=== PATIENT | female | born 1955 | race Caucasian/White ===

== ENCOUNTER 2016-12-09 21:55 | Emergency (ER) | payer BC ==
[~2016-12-09] VITALS: Ht 162.6 cm; Wt 87.5 kg
[2016-12-09 21:57] VITALS: Ht 162.6 cm; Wt 87.5 kg
[2016-12-10] MEDS ORDERED: HYDR-906 PO ×2 (00:15→00:56)
[2016-12-10] MEDS ORDERED: htn meds (00:15)
--- NOTE | 2016-12-10 00:20 | ERD ---
ER Documentation Chief Complaint Date/Time DATE: 12/10/16 TIME: 00:14 Chief Complaint pt reports out of pain meds HPI 61-year-old female presents to emergency department for refill of her pain medication, patient usually takes Grover 5/325 mg to help with her bilateral knee pain, chronic pain, patient has history of arthritis of both knees. Patient denies any trauma in the knee. Patient denies any fever or chills. Patient denies any redness or swelling. Patient denies any deformity. Patient ran out of the medication last 2 days. Patient denies any numbness or tingling. ROS All systems reviewed and are negative except as per history of present illness. Medications Home Meds Active Scripts Hydrocodone/Acetaminophen (Grover 5-325 Tablet) 1 Each Tablet, 1 TAB PO Q6H Y for PAIN, #10 TAB Prov:RINA STANFORD WEB [employer] DIRECTOR 12/10/16 Reported Medications Hydrocodone/Acetaminophen (Grover 5-325 Tablet) Unknown Strength Tablet, PO, TAB 12/10/16 [htn meds] Unknown Strength No Conflict Check 12/10/16 Allergies Allergies: Coded Allergies: No Known Allergy (Unverified , 12/10/16) PMhx/Soc History of Surgery: Yes (hysterectomy, section, cholecystectomy) Hx Miscellaneous Medical Probl: Yes (osteoarthritis, hypertension) Hx Alcohol Use: No Hx Substance Use: No Hx Tobacco Use: No FmHx Family History: No coronary disease, No diabetes, No other Physical Exam Vitals Vital Signs Date Time Temp Pulse Resp B/P Pulse Ox O2 Delivery O2 Flow Rate FiO2 12/10/16 01:16 98.2 60 16 161/81 97 Room Air 12/09/16 21:57 98.2 60 16 173/81 97 Physical Exam GENERAL: The patient is well developed and appropriate for usual state of health, in no apparent distress. CHEST: Clear to auscultation bilaterally. There are no rales, wheezes or rhonchi. HEART: Regular rate and rhythm. No murmurs, clicks, rubs or gallops. No S3 or S4. ABDOMEN: Soft, nontender and nondistended. Good bowel sounds. No rebound or guarding. No gross peritonitis. No gross organomegaly or masses. No Albrecht sign or McBurney point tenderness. BACK: No midline or flank tenderness. EXTREMITIES: Able to do full range of motion of bilateral knee without any restriction, no swelling noted, no deformity noted. No obvious joint effusion. Equal pulses bilaterally. Full range of motion of other joints of the body. Grossly neurovascularly intact. NEURO: Alert and oriented. Cranial nerves 2-12 intact. Motor strength in all 4 extremities with 5/5 strength. Sensation grossly intact. Normal speech and gait. SKIN: There is no apparent rash or petechia. The skin is warm and dry. HEMATOLOGIC AND LYMPHATIC: There is no evidence of excessive bruising or lymphedema. No gross cervical, axillary, or inguinal lymphadenopathy. Results 24 hrs Current Medications Medications (Trade) Dose Ordered Sig/Kim Route PRN Reason Start Time Stop Time Status Last Admin Dose Admin Acetaminophen/ Hydrocodone Bitart (Grover (5/325)) 1 tab ONCE ONCE PO 12/10/16 00:30 12/10/16 00:31 DC 12/10/16 00:50 Patient was given medication for pain here in emergency department, after treatment, patient verbalized feeling much better. Patient's pain is improved. Procedures/MDM Medical Decision Making: Patient's pain is most likely consistent with a chronic knee pain most likely from osteoarthritis. There is no suspicion for neurovascular compromise. Patient has intact sensation and circulation of the affected extremity. There is low suspicion for septic arthritis. Patient does not have any fever. Radiology exam is not indicated at this time since patient did not have any trauma on affected area. Disposition: Home. Patient is given prescription for Grover for severe pain (few pills, advised to see primary care doctor for further medications). Patient was advised to elevate the affected area and apply ice on affected area. Patient was advised that if symptoms are worse, numbness, tingling, high fever, unable to move joint, worsening symptoms, to return to emergency department immediately. Otherwise, patient is advised to follow up with the primary care doctor in 5-7 days for reevaluation of symptoms. Departure Diagnosis: Primary Impression: Encounter for medication refill Additional Impression: Chronic knee pain Laterality: bilateral Qualified Code: M25.561 - Chronic pain of both knees Condition: Stable RIAN STANFORD NP Dec 10, 2016 00:20
[2016-12-10] MEDS ORDERED: HYDROCODONE/APAP (5/325) TAB PO ONE (00:30)
[2016-12-10 01:16] VITALS: BP 161/81; PULSE 60; RESP 16; TEMP 98.2
== END 2016-12-10 01:16 | disposition home or self-care (01) ==
LOC: FTE 21:55
DX: Z76.0 Encounter for issue of repeat prescription (principal); M25.561 Pain in right knee; M25.562 Pain in left knee; I10 Essential (primary) hypertension
CPT/HCPCS: 99283; Z7610

== ENCOUNTER 2017-11-09 14:16 | Emergency (ER) | END 2017-11-09 16:49 | disposition home or self-care (01) ==

== ENCOUNTER 2017-11-17 12:25 | Emergency (ER) | END 2017-11-17 14:13 | disposition home or self-care (01) ==

== ENCOUNTER 2017-11-25 04:52 | Emergency (ER) | END 2017-11-25 12:07 | disposition EXP ==